=== PATIENT | male | born 1980 | race Caucasian/White ===

== ENCOUNTER → 2021-02-21 | Outpatient (CLI) | payer SELFPAY ==
[2021-02-21 15:40] LABS: HEMOGLOBIN 15.8 gm/dl (14.0-17.5); RED BLOOD COUNT 5.06 M/UL (4.20-5.50)
[2021-02-22 07:11] LABS: ESTIM. AVG GLU (EAG) 255 mg/dL (.); HEMOGLOBIN A1C 10.5 % (4.8-5.6)
[2021-02-22 10:14] LABS: CHOLESTEROL, TOTAL 484 mg/dL (100-199); HDL CHOLESTEROL 14 mg/dL (>39); T. CHOL/HDL RATIO 34.6 ratio (0.0-5.0); TRIGLYCERIDES 3140 mg/dL (0-149); VITAMIN D, 25-HYDROXY 8.1 ng/mL (30.0-100.0)
[2021-02-22 16:15] LABS: A/G RATIO 1.6 (1.2-2.2); ALKALINE PHOSPHATASE, S 125 IU/L (44-121); ALT (SGPT) 16 IU/L (0-44); AST (SGOT) 18 IU/L (0-40); BILIRUBIN, TOTAL <0.2 mg/dL (0.0-1.2); BUN 19 mg/dL (6-20); BUN/CREATININE RATIO 27 (9-20); CALCIUM, SERUM 8.9 mg/dL (8.7-10.2); CARBON DIOXIDE, TOTAL 17 mmol/L (20-29); CHLORIDE, SERUM 96 mmol/L (96-106); EGFR IF AFRICN AM 137 (>59); EGFR IF NONAFRICN AM 119 (>59); GLOBULIN, TOTAL 2.5 g/dL (1.5-4.5); GLUCOSE, SERUM 306 mg/dL (65-99); POTASSIUM, SERUM 4.5 mmol/L (3.5-5.2); PROTEIN, TOTAL, SERUM 6.5 g/dL (6.0-8.5); SODIUM, SERUM 130 mmol/L (134-144)
== END ==
LOC: LAB 15:10
PROVIDERS: Nurse Practitioner Family
DX: E11.9 Type 2 diabetes mellitus without complications (principal); E78.5 Hyperlipidemia, unspecified; K85.90 Acute pancreatitis without necrosis or infection, unspecified; R53.83 Other fatigue; E55.9 Vitamin D deficiency, unspecified; E53.9 Vitamin B deficiency, unspecified
CPT/HCPCS: 36415; 80053; 80061; 82150; 82607; 83036; 83690; 84402; 84403; 84439; 84443; 85025